=== PATIENT | female | born 1980 | race Caucasian/White ===

== ENCOUNTER 2021-12-01 06:12 | Day surgery (SDC) | payer MEDICAID ==
[~2021-12-01] VITALS: Ht 152.4 cm; Wt 58.1 kg
[~2021-12-01 06:12] MED LIST: CHOL200074 PO; CRAN250C PO; MULT-1116 PO
[2021-12-01] MEDS ORDERED: BUPIVACAINE HCL/PF 0.5% (5MG/ML) 10ML ONE (07:06)
[2021-12-01] MEDS ORDERED: SKIN ADHESIVE 0.7 GM EA TOP ONE (07:06)
[2021-12-01] MEDS ORDERED: LACTATED RINGERS 1,000 ML IV SCH (07:30)
[2021-12-01 07:38] LABS: CLARITY URINE CLEAR (CLEAR); COLOR URINE YELLOW (YELLOW); KETONES URINE NEGATIVE (NEGATIVE); LEUKOCYTE ESTERASE URINE NEGATIVE (NEGATIVE); NITRITE URINE NEGATIVE (NEGATIVE); OCCULT BLOOD URINE NEGATIVE (NEGATIVE); PROTEIN URINE NEGATIVE (NEGATIVE); SPECIFIC GRAVITY URINE 1.007 (1.005-1.030); UROBILINOGEN URINE 0.2 E.U./dL (0.2-1.0)
[2021-12-01 07:54] LABS: UCG SCREEN NEGATIVE
[2021-12-01] MEDS ORDERED: PROPOFOL 200MG/20ML VIAL IV ONE (09:11)
[2021-12-01] MEDS ORDERED: MIDAZOLAM HCL 2 MG/2 ML VIAL ONE (09:12)
[2021-12-01] MEDS ORDERED: FENTANYL CITRATE/PF 50MCG/ML 2ML VIAL ONE (09:20)
[2021-12-01] MEDS ORDERED: LIDOCAINE HCL 1% 10 MG/ML 10ML VIAL ONE (09:42)
[2021-12-01] MEDS ORDERED: CEFAZOLIN SODIUM 1000MG/VIAL ONE (09:42)
[2021-12-01] MEDS ORDERED: LIDOCAINE HCL 2% JELLY 5ML ONE (09:42)
[2021-12-01] MEDS ORDERED: ONDANSETRON HCL 4MG/2ML INJ ONE (09:42)
[2021-12-01] MEDS ORDERED: DEXAMETHASONE 4MG/ML 1ML VIAL ONE (09:42)
== END 2021-12-01 12:45 | disposition home or self-care (01) ==
LOC: OR 06:12
PROVIDERS: ATTEND Surgery
DX: R22.2 Localized swelling, mass and lump, trunk (principal); Z79.899 Other long term (current) drug therapy; Z98.890 Other specified postprocedural states; Z20.822 Contact with and (suspected) exposure to COVID-19
CPT/HCPCS: 21931; 81003; 81025; 87426; C9803; J0690; J1100; J2250; J2405; J2704; J3010; J3490; J7120; 88305